=== PATIENT | male | born 1950 | race Caucasian/White ===

== ENCOUNTER 2019-01-17 23:49 | Emergency (ER) | payer OTHER ==
[2019-01-18] MEDS ORDERED: HYDROCODONE/APAP 7.5/325 MG TAB ONE (00:38)
--- NOTE | 2019-01-18 01:03 | EDPHYS ---
Physician Documentation [facility] Name: Chad Oneill Age: 68 yrs Sex: Male : 1950 Arrival Date: 01/17/2019 Time: 23:54 Bed 20 Private MD: ED Physician Pawel Haro HPI: 01/18 00:52 This 68 yrs old Male presents to ER via EMS with complaints of Knee Pain. snw 00:52 The patient presents with decreased range of motion, pain, spasm, swelling. The snw complaints affect the left knee. Context: The problem was sustained at home, resulted from the patient tripping, on a floor edge, the patient is not able to bear weight, the patient is not able to ambulate. Onset: The symptoms/episode began/occurred suddenly, just prior to arrival. Associated signs and symptoms: The patient has no apparent associated signs or symptoms. Treatment prior to arrival includes: no previous treatment. Severity of symptoms: At their worst the symptoms were moderate, severe. The patient has not experienced similar symptoms in the past. It is unknown whether or not the patient has recently seen a physician. no LOC. Historical: - Allergies: 00:00 No Known Allergies; ed1 - Home Meds: 00:00 None [Active]; ed1 - PMHx: 00:00 Hypertension; ed1 - PSHx: 00:00 Heart stents; Hip replacement; ed1 - Immunization history:: Adult Immunizations unknown. - Social history:: Smoking status: Patient/guardian denies using tobacco. - Ebola Screening: : Patient negative for fever greater than or equal to 101.5 degrees Fahrenheit, and additional compatible Ebola Virus Disease symptoms Patient denies exposure to infectious person Patient denies travel to an Ebola-affected area in the 21 days before illness onset No symptoms or risks identified at this time. ROS: 00:50 Constitutional: Negative for fever, chills, and weight loss, Eyes: Negative for injury, snw pain, redness, and discharge, ENT: Negative for injury, pain, and discharge, Neck: Negative for injury, pain, and swelling, Cardiovascular: Negative for chest pain, palpitations, and edema, Respiratory: Negative for shortness of breath, cough, wheezing, and pleuritic chest pain, Abdomen/GI: Negative for abdominal pain, nausea, vomiting, diarrhea, and constipation, Back: Negative for injury and pain, : Negative for injury, bleeding, discharge, and swelling, Skin: Negative for injury, rash, and discoloration, Neuro: Negative for headache, weakness, numbness, tingling, and seizure, Psych: Negative for depression, anxiety, suicide ideation, homicidal ideation, and hallucinations. 00:50 MS/extremity: Positive for injury or acute deformity, decreased range of motion, pain, swelling, tenderness, of the left knee. Exam: 00:49 Constitutional: This is a well developed, obese patient who is awake, alert, and in no snw acute distress. Head/Face: Normocephalic, atraumatic. Eyes: Pupils equal round and reactive to light, extra-ocular motions intact. Lids and lashes normal. Conjunctiva and sclera are non-icteric and not injected. Cornea within normal limits. Periorbital areas with no swelling, redness, or edema. ENT: Nares patent. No nasal discharge, no septal abnormalities noted. Tympanic membranes are normal and external auditory canals are clear. Oropharynx with no redness, swelling, or masses, exudates, or evidence of obstruction, uvula midline. Mucous membranes moist. Neck: Trachea midline, no thyromegaly or masses palpated, and no cervical lymphadenopathy. Supple, full range of motion without nuchal rigidity, or vertebral point tenderness. No Meningismus. Chest/axilla: Normal chest wall appearance and motion. Nontender with no deformity. No lesions are appreciated. Cardiovascular: Regular rate and rhythm with a normal S1 and S2. No gallops, murmurs, or rubs. Normal PMI, no JVD. No pulse deficits. Respiratory: Lungs have equal breath sounds bilaterally, clear to auscultation and percussion. No rales, rhonchi or wheezes noted. No increased work of breathing, no retractions or nasal flaring. Abdomen/GI: Soft, non-tender, with normal bowel sounds. No distension or tympany. No guarding or rebound. No evidence of tenderness throughout. Back: No spinal tenderness. No costovertebral tenderness. Full range of motion. Skin: Warm, dry with normal turgor. Normal color with no rashes, no lesions, and no evidence of cellulitis. Neuro: Awake and alert, GCS 15, oriented to person, place, time, and situation. Cranial nerves II-XII grossly intact. Motor strength 5/5 in all extremities. Sensory grossly intact. Cerebellar exam normal. Normal gait. Psych: Awake, alert, with orientation to person, place and time. Behavior, mood, and affect are within normal limits. 00:49 Musculoskeletal/extremity: Extremities: grossly normal except: noted in the left knee: decreased ROM, pain, swelling, ROM: limited active range of motion due to pain, limited passive range of motion due to pain, Circulation is intact in all extremities. Sensation intact. Vital Signs: 00:00 BP 155 / 81; Pulse 62; Resp 18; Temp 98.1(TE); Pulse Ox 98% on R/A; Weight 129.27 kg; ed1 Height 5 ft. 8 in. (172.72 cm); Pain 9/10; 01:32 BP 161 / 72; Pulse 67; Resp 17; Pulse Ox 96% on R/A; Pain 6/10; ed1 00:00 Body Mass Index 43.33 (129.27 kg, 172.72 cm) ed1 MDM: 01/17 23:55 Patient medically screened. snw 01/18 01:05 Data reviewed: vital signs, nurses notes. Data interpreted: Pulse oximetry: on room air snw is 98 %. Interpretation: normal. Counseling: I had a detailed discussion with the patient and/or guardian regarding: the historical points, exam findings, and any diagnostic results supporting the discharge/admit diagnosis, radiology results. 01:07 Physician consultation: Brett Padilla MD was called at 00:55, was contacted at 00:59, snw regarding consult, Dr. Padilla recommends knee immobilizer and follow up in office. . 01/18 00:06 Order name: Knee Left 3 View XRAY; Complete Time: 13:17 snw 01/18 00:51 Order name: Knee Immobilizer; Complete Time: 01:32 snw Administered Medications: 00:24 Drug: [place] (7.5 mg-325 mg) 1 tabs Route: PO; ed1 01:32 Follow up: Response: No adverse reaction; Pain is decreased ed1 01:43 Drug: fentaNYL (PF) 75 mcg Route: IM; Site: right deltoid; ed1 01:43 Follow up: Response: Medication administered at discharge. ed1 Disposition: 06:55 Co-signature as Attending Physician, Pawel Haro MD I agree with the assessment and arnol plan of care. Disposition: 01/18/19 01:02 Discharged to Home. Impression: Nondisplaced fracture of lateral condyle of left femur, Fall on same level, unspecified. - Condition is Stable. - Discharge Instructions: Femoral Shaft Fracture, Fall Prevention in the Home, Knee Immobilizer. - Prescriptions for Tylenol- Codeine #3 300-30 mg Oral Tablet - take 2 tablets by ORAL route every 6 hours As needed; 16 tablet. - Medication Reconciliation Form, Thank You Letter, Antibiotic Education, Prescription Opioid Use, SBAR form form. - Follow up: Brett Padilla MD; When: 1 - 2 days; Reason: Recheck today's complaints, Continuance of care, Re-evaluation by your physician. Signatures: Dispatcher [employer] EDMS Pawel Haro MD MD cha Therrien, Shelly, WIRE WEB WORKER-C WIRE WEB WORKER-Csnw Tarik Chun MD MD rn Riggs, Erika, RN RN ed1 Corrections: (The following items were deleted from the chart) 01:07 01:02 01/18/2019 01:02 Discharged to Home. Impression: Nondisplaced fracture of lateral snw condyle of left femur; Fall on same level, unspecified. Condition is Stable. Forms are Medication Reconciliation Form, Thank You Letter, Antibiotic Education, Prescription Opioid Use. Follow up: Brett Padilla; When: 1 - 2 days; Reason: Recheck today's complaints, Continuance of care, Re-evaluation by your physician. [facility] 01:32 00:52 Misc. Order ordered. [facility] ed1
--- NOTE | 2019-01-18 01:03 | ER ---
Nurse's Notes [facility] Name: Chad Oneill Age: 68 yrs Sex: Male : 1950 Arrival Date: 01/17/2019 Time: 23:54 Bed 20 Private MD: Diagnosis: Nondisplaced fracture of lateral condyle of left femur;Fall on same level, unspecified Presentation: 01/17 23:55 Presenting complaint: EMS states: He was walking to bed and caught his foot on ed1 something and fell on his left knee. Transition of care: patient was not received from another setting of care. Onset of symptoms was January 17, 2019. Risk Assessment: Do you want to hurt yourself or someone else? Patient reports no desire to harm self or others. Initial Sepsis Screen: Does the patient meet any 2 criteria? No. Patient's initial sepsis screen is negative. Does the patient have a suspected source of infection? No. Patient's initial sepsis screen is negative. Care prior to arrival: None. 23:55 Method Of Arrival: EMS: [facility] ed1 23:55 Acuity: MARIJA 4 ed1 Triage Assessment: 01/18 00:00 General: Appears uncomfortable, Behavior is calm, cooperative. Pain: Complains of pain ed1 in left knee Pain radiates to left leg Pain currently is 9 out of 10 on a pain scale. Quality of pain is described as throbbing, Pain began 30 min ago. Is continuous. EENT: No signs and/or symptoms were reported regarding the EENT system. Neuro: Level of Consciousness is awake, alert, obeys commands, Oriented to person, place, time, situation, Denies LOC. Cardiovascular: Denies chest pain, Heart tones S1 S2 present Capillary refill < 3 seconds in bilateral fingers. Respiratory: Airway is patent Respiratory effort is even, unlabored, Respiratory pattern is regular, symmetrical, Breath sounds are clear bilaterally. Denies cough, shortness of breath. GI: No signs and/or symptoms were reported involving the gastrointestinal system. : No signs and/or symptoms were reported regarding the genitourinary system. Derm: Wound noted left knee Wound is abrasions. Musculoskeletal: Circulation, motion, and sensation intact. Range of motion: limited in left knee Swelling absent. Historical: - Allergies: 00:00 No Known Allergies; ed1 - Home Meds: 00:00 None [Active]; ed1 - PMHx: 00:00 Hypertension; ed1 - PSHx: 00:00 Heart stents; Hip replacement; ed1 - Immunization history:: Adult Immunizations unknown. - Social history:: Smoking status: Patient/guardian denies using tobacco. - Ebola Screening: : Patient negative for fever greater than or equal to 101.5 degrees Fahrenheit, and additional compatible Ebola Virus Disease symptoms Patient denies exposure to infectious person Patient denies travel to an Ebola-affected area in the 21 days before illness onset No symptoms or risks identified at this time. Screenin:03 Abuse screen: Denies threats or abuse. Denies injuries from another. Nutritional ed1 screening: No deficits noted. Tuberculosis screening: No symptoms or risk factors identified. Fall Risk Fall in past 12 months (25 points). No secondary diagnosis (0 pts). No IV (0 pts). Ambulatory Aid- None/Bed Rest/Nurse Assist (0 pts). Gait- Normal/Bed Rest/Wheelchair (0 pts) Mental Status- Oriented to own ability (0 pts). Total Jones Fall Scale indicates Low Risk Score (25-44 pts). Fall prevention measures have been instituted. Side Rails Up X 2 Placed close to Nursing Station Frequent Obs/Assesments occuring Family Present and informed to notify staff if they need to leave bedside As available Patient and Family Educated on Fall Prevention Program and strategies. Assessment: 00:03 General: See triage assessment. ed1 01:32 Reassessment: Patient appears in no apparent distress at this time. Patient and/or ed1 family updated on plan of care and expected duration. Pain level reassessed. Patient is alert, oriented x 3, equal unlabored respirations, skin warm/dry/pink. Patient states feeling better. Patient states symptoms have improved. Vital Signs: 00:00 BP 155 / 81; Pulse 62; Resp 18; Temp 98.1(TE); Pulse Ox 98% on R/A; Weight 129.27 kg; ed1 Height 5 ft. 8 in. (172.72 cm); Pain 9/10; 01:32 BP 161 / 72; Pulse 67; Resp 17; Pulse Ox 96% on R/A; Pain 6/10; ed1 00:00 Body Mass Index 43.33 (129.27 kg, 172.72 cm) ed1 ED Course: 01/17 23:54 Patient arrived in ED. ed1 23:55 Crissy Valencia FNP-C is [facility]. snw 23:55 Pawel Haro MD is Attending Physician. snw 23:58 Triage completed. ed1 06 00:00 Arm band placed on right wrist. ed1 00:03 Patient has correct armband on for positive identification. Bed in low position. Call ed1 light in reach. Side rails up X2. Pulse ox on. NIBP on. Warm blanket given. 00:04 Nathalia Scales, RN is Primary Nurse. ed1 01:01 Brett Weir MD is Referral Physician. snw 01:04 X-ray completed. Patient tolerated procedure well. kw 01:11 Knee Left 3 View XRAY In Process Unspecified. EDMS 01:32 No provider procedures requiring assistance completed. Patient did not have IV access ed1 during this emergency room visit. Knee immobilizer applied on left knee. Administered Medications: 00:24 Drug: [place] (7.5 mg-325 mg) 1 tabs Route: PO; ed1 01:32 Follow up: Response: No adverse reaction; Pain is decreased ed1 01:43 Drug: fentaNYL (PF) 75 mcg Route: IM; Site: right deltoid; ed1 01:43 Follow up: Response: Medication administered at discharge. ed1 Outcome: 01:02 Discharge ordered by . snw 01:43 Discharged to home via [facility] ed1 01:43 Condition: stable 01:43 Discharge instructions given to patient, family, Instructed on discharge instructions, follow up and referral plans. medication usage, Demonstrated understanding of instructions, follow-up care, medications, Prescriptions given X 1. 01:59 Patient left the ED. ed1 Signatures: Dispatcher [employer] EDMS Crissy Valencia FNP-C CONSTRUCTION EQUIPMENT OPERATOR-Csnw Nathalia Scales, RN RN ed1 Maday Guzman kw
[2019-01-18] MEDS ORDERED: FENTANYL CITR 100 MCG/2 ML ONE (01:54)
--- NOTE | 2019-01-18 09:09 | RAD REPORT ---
EXAM DESCRIPTION: RAD - Knee Left 3 View - 01/18/2019 1:11 am CLINICAL HISTORY: Fall, left knee pain COMPARISON: None. FINDINGS: An oblique fracture is present through the distal femur. Fracture plane extends from the l ateral margin of the metaphysis inferiorly into the midline intercondylar notch. No significant distr action or angulation deformity. Joint effusion or hemarthrosis present.Degenerative spurring is seen along the articular margins of the patella and at the quadriceps attachment site. No soft tissue abno rmality. IMPRESSION: Distal left femur fracture as detailed.
== END 2019-01-18 01:59 | disposition home or self-care (01) ==
LOC: ER 23:49
DX: S72.425A Nondisplaced fracture of lateral condyle of left femur, initial encounter for closed fracture (principal); W01.0XXA Fall on same level from slipping, tripping and stumbling without subsequent striking against object, initial encounter; Y92.009 Unspecified place in unspecified non-institutional (private) residence as the place of occurrence of the external cause; I10 Essential (primary) hypertension
CPT/HCPCS: 73562; J3010; 96372; 99284

== ENCOUNTER 2019-01-18 12:08 | Inpatient (IN) | payer OTHER ==
[2019-01-18] MEDS ORDERED: ONDANSETRON 4 MG/2 ML VIAL IV PRN (12:49)
[2019-01-18] MEDS ORDERED: D50W 25 GM/50 ML SYRINGE IV PRN ×2 (12:49→17:08)
[2019-01-18] MEDS ORDERED: ACETAMINOPHEN 325 MG TABLET PO PRN (12:49)
[2019-01-18] MEDS ORDERED: GLUCAGON 1 MG/VIAL IM PRN ×2 (12:49→17:08)
[2019-01-18] MEDS: HYDROMORPHONE HCL 1 MG/ML INJ IV PRN ×3 (13:09→20:03)
[2019-01-18 13:29] LABS: Absolute Lymphocytes (CBC) 0.9 K/uL (0.7-4.9); Basophils % 0.5 % (0-1.3); Eosinophils % 0.2 % (0-4.4); Hematocrit 45.9 % (39.6-49.0); Lymphocytes % 8.1 % (15.3-44.8); Monocytes % 7.9 % (3.3-12.3); RBC Red Blood Cell Count 5.01 M/uL (4.33-5.43)
--- NOTE | 2019-01-18 13:36 | RAD REPORT ---
EXAM DESCRIPTION: RAD - Chest Single View - 01/18/2019 1:30 pm CLINICAL HISTORY: Preop chest, pending femur fracture repair COMPARISON: February 2014 TECHNIQUE: AP portable chest image was obtained 1325 hours . FINDINGS: Lung volumes are low. No peripheral mass or consolidation. No failure or volume overload. Heart and vasculature are normal. No measurable pleural effusion and no pneumothorax. No acute bony a bnormality seen. No acute aortic findings suspected. IMPRESSION: No acute cardiopulmonary process. No significant interval change.
[2019-01-18 13:43] LABS: Protime INR 0.98
[2019-01-18 14:17] LABS: Potassium 4.7 mmol/L (3.5-5.1)
[2019-01-18] MEDS ORDERED: INSULIN -REGULAR HUMAN 50 UNIT/0.5 ML ML SQ SCH (16:30)
[2019-01-18 16:44] LABS: Urine Appearance CLEAR; Urine Bilirubin NEGATIVE (NEG); Urine Blood NEGATIVE (NEG); Urine Color YELLOW; Urine Glucose 3+ (NEG); Urine Protein NEGATIVE (NEG); Urine Specific Gravity >=1.030 (1.005-1.030); Urine Urobilinogen 0.2 mg/dL (0.2-1.0)
[2019-01-18 16:46] LABS: Urine Microscopic Reflex NO UMIC
[2019-01-18] MEDS: INSULIN -REGULAR HUMAN 50 UNIT/0.5 ML ML SQ SCH ×2 (17:28→20:02)
--- NOTE | 2019-01-18 21:21 | P.HP ---
Certification for Inpatient Patient admitted to: Inpatient With expected LOS: >2 Midnights Practitioner: I am a practitioner with admitting privileges, knowledge of patient current condition, hospital course, and medical plan of care. Services: Services provided to patient in accordance with Admission requirements found in Title 42 Section 412.3 of the Code of Federal Regulations Patient History Date of Service: 01/18/19 Reason for admission: FELL AND BROKE L LEG. History of Present Illness: MR THORNTON IS OBESE DIABETIC WHO FELL AT HOME TOPPLED OVER THE BOX FILLED WITH STUFF IN KITCHEN AND BROKE L LEG. HE HAS NOT BEEN TAKING HIS MEDICATIONS TRYING TO TAKE CARE OF FATHER IN LAW WHO RECENTLY. HE HAS NOT CHECKED HIS GLUCOSE. Allergies No Known Allergies Allergy (Unverified 01/18/19 12:33) Home Medications: Aspirin 81 mg PO DAILY 01/18/19 Atorvastatin Calcium 40 mg PO BEDTIME 01/18/19 Canagliflozin/Metformin HCl [Invokamet 150-1,000 mg Tablet] 1 tab PO BID Glimepiride [Amaryl] 4 mg PO DAILY 01/18/19 Lisinopril [Prinivil] 20 mg PO DAILY 01/18/19 - Past Medical/Surgical History Has patient received pneumonia vaccine in the past: Yes -: Type 2 DM -: Hypertension -: 3 heart Stents -: Left Hip replacement - Social History Smoking Status: Never smoker Alcohol use: No CD- Drugs: No Caffeine use: Yes Place of Residence: Home Review of Systems 10-point ROS is otherwise unremarkable Musculoskeletal: Leg Pain Physical Examination - Vital Signs Temperature: 98 F Blood Pressure: 136/75 Pulse: 87 Respirations: 16 Pulse Ox (%): 95 - Physical Exam General: Alert, Obese HEENT: Atraumatic, PERRLA, Mucous membr. moist/pink, EOMI, Sclerae nonicteric Neck: Supple, 2+ carotid pulse no bruit, No LAD, Without JVD or thyroid abnormality Respiratory: Clear to auscultation bilaterally, Normal air movement Cardiovascular: Regular rate/rhythm, Normal S1 S2 Gastrointestinal: Normal bowel sounds, No tenderness Musculoskeletal: No tenderness Integumentary: No rashes Neurological: Normal gait, Normal speech, Normal strength at 5/5 x4 extr, Normal tone, Normal affect Lymphatics: No axilla or inguinal lymphadenopathy - Studies Laboratory Data (last 24 hrs) 01/18/19 : PT Cancelled, INR Cancelled 01/18/19 16:54: Glucose 511 H* 01/18/19 13:48: Sodium 133 L, Potassium 4.7, BUN 18, Creatinine 1.10, Glucose 384 H 01/18/19 13:06: PT 11.6, INR 0.98 01/18/19 13:06: Sodium Cancelled, Potassium Cancelled, BUN Cancelled, Creatinine Cancelled, Glucose Cancelled 01/18/19 13:06: WBC 11.6 H, Hgb 15.2, Hct 45.9, Plt Count 259 Assessment and Plan - Problems (Diagnosis) (1) Diabetes Current Visit: Yes Status: Acute Plan: RESTART MEDS FU EVERY 3 MTHS. HE IS NOT WATCHING DIET. HE KNOWS ABOUT COMPLICATIONS OF DM. Qualifiers: Diabetes mellitus type: type 2 Diabetes mellitus complication status: without complication (2) Femur fracture, left Current Visit: Yes Status: Acute Plan: SURGERY BY DR WALLACE IN AM THIS IS URGENT SURGERY. MEDICALLY CLEARED WITH MILD TO MODERATE RISK OF RECOVERY. OBESITY AND DM ARE RISK FACTORS. Qualifiers: Encounter type: initial encounter Femur location: distal, unspecified portion Fracture type: closed - Advance Directives Does patient have a Living Will: No Does patient have a Durable POA for Healthcare: No
[2019-01-19] MEDS: HYDROMORPHONE HCL 1 MG/ML INJ IV PRN ×5 (00:30→22:29)
--- NOTE | 2019-01-19 07:55 | EKG ---
Test Date: 2019-01-18 Test Time: 12:48:24 Infection Control Practitioner: MADINA MEASUREMENT RESULTS: Intervals: Rate: 63 ND: 174 QRSD: 76 QT: 402 QTc: 411 Stover: P: 7 ND: 174 QRS: 21 T: 41 INTERPRETIVE STATEMENTS: Normal sinus rhythm with sinus arrhythmia Low voltage QRS Borderline ECG Compared to ECG 07/26/2009 05:58:53 No significant changes Electronically Signed On 01-19-19 07:54:15 CDT by Dewayne Haskins
[2019-01-19] MEDS: INSULIN -REGULAR HUMAN 50 UNIT/0.5 ML ML SQ SCH ×4 (08:15→21:54)
[2019-01-19] MEDS: CANAGLIFLOZIN PO SCH ×2 (08:18→21:00)
[2019-01-19] MEDS: GLIMEPIRIDE 2 MG TABLET PO SCH ×2 (08:18→21:54)
[2019-01-19] MEDS: ASPIRIN 81 MG CHEWABLE TABLET PO SCH (08:18)
[2019-01-19] MEDS: LISINOPRIL 20 MG TAB PO SCH (08:18)
[2019-01-19] MEDS: METFORMIN HCL PO SCH ×2 (08:18→21:00)
[2019-01-19 11:40] LABS: UR MICROALBUMIN 4.6 mg/dL (< 1.9)
--- NOTE | 2019-01-19 12:36 | P.PN ---
Subjective Date of Service: 01/19/19 Chief Complaint: FELL AND BROKE L LEG. Subjective: No C/O voiced PAIN NEAR KNEE. SP FALL. Review of Systems 10-point ROS is otherwise unremarkable General: Weakness, Malaise Physical Examination - Vital Signs Temperature: 98.5 F Blood Pressure: 138/77 Pulse: 85 Respirations: 17 Pulse Ox (%): 92 - Physical Exam General: Alert, Mild distress, Moderate distress HEENT: Atraumatic, PERRLA, EOMI Neck: Supple, JVD not distended Respiratory: Clear to auscultation bilaterally, Normal air movement Cardiovascular: Regular rate/rhythm, Normal S1 S2 Gastrointestinal: Normal bowel sounds, No tenderness Musculoskeletal: No tenderness Integumentary: No rashes Neurological: Normal speech, Normal tone, Normal affect Lymphatics: No axilla or inguinal lymphadenopathy - Studies Laboratory Data (last 24 hrs) 01/19/19 07:17: LDL Cholesterol Direct 174 H 01/18/19 : PT Cancelled, INR Cancelled 01/18/19 16:54: Glucose 511 H* 01/18/19 13:48: Sodium 133 L, Potassium 4.7, BUN 18, Creatinine 1.10, Glucose 384 H 01/18/19 13:06: PT 11.6, INR 0.98 01/18/19 13:06: Sodium Cancelled, Potassium Cancelled, BUN Cancelled, Creatinine Cancelled, Glucose Cancelled 01/18/19 13:06: WBC 11.6 H, Hgb 15.2, Hct 45.9, Plt Count 259 Medications List Reviewed: Yes Assessment And Plan - Current Problems (Diagnosis) (1) Diabetes Current Visit: Yes Status: Acute Plan: RESTART MEDS FU EVERY 3 MTHS. HE IS NOT WATCHING DIET. HE KNOWS ABOUT COMPLICATIONS OF DM. HE HAS NOT TAKEN MEDS FOR LONG TIME. Qualifiers: Diabetes mellitus type: type 2 Diabetes mellitus complication status: without complication (2) Femur fracture, left Current Visit: Yes Status: Acute Plan: SURGERY BY DR WALLACE IN AM THIS IS URGENT SURGERY. MEDICALLY CLEARED WITH MILD TO MODERATE RISK OF RECOVERY. OBESITY AND DM ARE RISK FACTORS. Qualifiers: Encounter type: initial encounter Femur location: distal, unspecified portion Fracture type: closed
[2019-01-19] MEDS ORDERED: NA CHLORIDE 0.9% 1,000 ML ONE ×3 (13:46→18:09)
[2019-01-19] MEDS ORDERED: PROPOFOL 200 MG/20 ML VIAL IV ONE (14:25)
[2019-01-19] MEDS ORDERED: FENTANYL CITR 100 MCG/2 ML ONE ×2 (14:25→15:35)
[2019-01-19] MEDS ORDERED: LIDOCAINE 2% MPF 5 ML VIAL ONE (14:26)
[2019-01-19] MEDS ORDERED: MIDAZOLAM HCL 2 MG/2 ML INJ ONE ×2 (14:26→17:32)
[2019-01-19] MEDS ORDERED: ONDANSETRON 4 MG/2 ML VIAL ONE (14:28)
[2019-01-19] MEDS ORDERED: CEFAZOLIN/SWI 2gm 2 GM/20 ML SYR IVP SCH (14:30)
[2019-01-19] MEDS ORDERED: CEFAZOLIN/SWI 1gm 0 GM/0 ML SYR ONE (14:30)
[2019-01-19] MEDS ORDERED: Phenylephrine HCl 10 MG/ML 1 ML VIAL ONE (14:55)
[2019-01-19] MEDS ORDERED: TRANEXAMIC ACID 1,000 MG/10 ML VIAL IV SCH (15:00)
--- NOTE | 2019-01-19 16:59 | P.BOP ---
Preoperative diagnosis: left distal femur lat condyle fx Postoperative diagnosis: same Primary procedure: left distal femur ORIF Estimated blood loss: 50ccs Anesthesia: General Complications: None Transferred to: Recovery Room Condition: Good
[2019-01-19] MEDS ORDERED: ROPLVACAINE HCL 40 ML ONE (17:15)
[2019-01-19] MEDS ORDERED: dexAMETHasone 4 MG/ML VIAL ONE (17:15)
--- NOTE | 2019-01-19 18:05 | RAD REPORT ---
EXAM DESCRIPTION: RAD - Knee Left 2 View - 01/19/2019 5:42 pm CLINICAL HISTORY: Left femoral fracture FINDINGS: Twenty-one fluoroscopic spot images obtained. Fluoroscopy time 1.5 minutes surgery perform ed by Dr. Cason Edjose Plate and screws affix a distal femoral fracture
[2019-01-19] MEDS ORDERED: INSULIN -REGULAR HUMAN 50 UNIT/0.5 ML ML ONE (18:07)
[2019-01-19] MEDS: ATORVASTATIN 40 MG TAB PO SCH (21:54)
[2019-01-19] MEDS ORDERED: CEFAZOLIN SODIUM 1 GM/VIAL ONE (23:18)
[2019-01-19] MEDS ORDERED: NA CHLORIDE 0.9% 50 ML ONE (23:33)
[2019-01-19] MEDS: CEFAZOLIN/NS 1gm 1 GM/50 ML BAG IVPB SCH (23:34)
[2019-01-20] MEDS: HYDROMORPHONE HCL 1 MG/ML INJ IV PRN ×6 (02:39→20:30)
[2019-01-20 04:50] LABS: Absolute Lymphocytes (CBC) 0.6 K/uL (0.7-4.9); Basophils % 0.1 % (0-1.3); Hematocrit 40.8 % (39.6-49.0); Lymphocytes % 5.6 % (15.3-44.8); MPV 9.7 fL (7.6-11.3); Monocytes % 8.3 % (3.3-12.3); RBC Red Blood Cell Count 4.44 M/uL (4.33-5.43)
--- NOTE | 2019-01-20 04:52 | OP ---
Date of Procedure: 01/19/2019 Surgeon: Olayinka Cason MD Preoperative Diagnosis: Left distal femur lateral condyle fracture, which is intercondylar. Postoperative Diagnosis: Left distal femur lateral condyle fracture, which is intercondylar. Procedure: Left femur open reduction and internal fixation using a Biomet locking periarticular plat e. Estimated Blood Loss: 50 cc. Complications: There were no complications. Specimens: No pathology specimen sent. Indications For Operation: Mr. Oneill is a 68-year-old male who I have seen in the past. I have do ne a total hip arthroplasty and he is doing well. Unfortunately, he fell injuring his left lower ext remity. He was seen and examined in the emergency department where x-ray was taken, which demonstrat ed a slightly displaced lateral condyle fracture of the femur. He was placed in knee immobilizer and sent home. He came to my office in significant pain. Unfortunately, he was unable to transfer to [facility] back to the hospital. Therefore, an ambulance came and brought him back to the hospital. He was directly admitted under the care of his primary care physician. All risks, benefits, and alternative s to operative intervention regarding his left knee had been discussed with both he and his family, i ncluding different methods of treating this. They state they understand things as presented and wish to proceed. Description Of Procedure: The patient was taken to the operating room and placed in supine position. General anesthesia was obtained by the staff. Following this, the left lower extremity was then pr epped and draped in the usual sterile fashion. We did have a sterile tourniquet available if we wish to use; however, we did not use it throughout the case. Following this, a standard anterior incisio n was taken down carefully through skin and soft tissues, very reminiscent of a total knee arthroplas ty incision which extended somewhat superiorly. Following this, the lateral border of the patellar t endon was marked out as well as the lateral border of the patella. A lateral parapatellar arthrotomy was then performed with a gush of significant amount of hemarthrosis, which was cleared as approache d the more lateral aspect of the patella. Remainder of the vessels are cauterized and the fascia ove rlying the quadriceps is divided. Care was taken not to proceed posteriorly as some of the quadricep s is elevated off the lateral portions of the anterior femur. The fracture itself then is excellentl y visualized and is found to be quite displaced, rotated approximately 30 degrees into extension. Th e fracture site itself is cleared and, manual pressure using a thumb as well as use of a Martinez clamp, we were able to reduce this essentially anatomically. After this, the decision was made to select t he plate. The right plate actually appeared to fit quite well. Therefore, it was applied to the fem ur with two K-wires holding reduction and observed under biplanar C-arm radiography and appeared to f it quite well. The two distal screws are then placed without difficulty as well as one proximal scre w across the fracture site. It was again checked on biplanar C-arm radiography and the remainder of the screws are then placed. The initial screw proximally is slightly angled; however, this is prefer able to avoid multiple inline screw holes. The locking caps were then applied to 3 of the 4 distal s crews. The most distal screw does not have a locking cap. Following this, the wound was copiously i rrigated and the fascial incision as well as the lateral parapatellar arthrotomy were closed using Et hibond sutures. This was followed by closure of skin using Vicryl sutures, followed by closure of th e skin using donny. The patient was then placed in Aquacel dressing, awakened, and taken to recove ry room in good condition. GAYLA Voice ID: [id number] Report ID: [id number]
[2019-01-20 05:08] LABS: Magnesium 2.3 mg/dL (1.8-2.4); Potassium 4.9 mmol/L (3.5-5.1)
[2019-01-20] MEDS ORDERED: NA CHLORIDE 0.9% 50 ML ONE (05:25)
[2019-01-20 05:26] LABS: Blood Morphology Comment NOT SEEN (NOT SEEN); Platelet Estimate ADEQ; Urine White Blood Cell Casts OK
[2019-01-20] MEDS: CEFAZOLIN/NS 1gm 1 GM/50 ML BAG IVPB SCH (06:34)
[2019-01-20] MEDS: CANAGLIFLOZIN PO SCH ×2 (07:57→20:31)
[2019-01-20] MEDS: METFORMIN HCL PO SCH ×2 (07:57→20:31)
[2019-01-20] MEDS: INSULIN -REGULAR HUMAN 50 UNIT/0.5 ML ML SQ SCH ×4 (07:58→20:29)
[2019-01-20] MEDS: LISINOPRIL 20 MG TAB PO SCH (07:59)
[2019-01-20] MEDS: GLIMEPIRIDE 2 MG TABLET PO SCH ×2 (07:59→20:30)
[2019-01-20] MEDS: ASPIRIN 81 MG CHEWABLE TABLET PO SCH (07:59)
[2019-01-20] MEDS: ENOXAPARIN 30 MG/0.3 ML SQ SCH ×2 (10:50→20:30)
[2019-01-20] MEDS ORDERED: CEFAZOLIN/SWI 1gm 1 GM/10 ML SYR IV ONE (15:00)
[2019-01-20] MEDS: ATORVASTATIN 40 MG TAB PO SCH (20:30)
[2019-01-20] MEDS ORDERED: D50W 25 GM/50 ML SYRINGE IV PRN (22:05)
[2019-01-20] MEDS ORDERED: GLUCAGON 1 MG/VIAL IM PRN (22:05)
--- NOTE | 2019-01-20 22:05 | P.PN ---
Subjective Date of Service: 01/20/19 Chief Complaint: FELL AND BROKE L LEG. Subjective: Improving PAIN NEAR KNEE. SP FALL. SP SURGERY. Review of Systems 10-point ROS is otherwise unremarkable Physical Examination - Vital Signs Temperature: 98.8 F Blood Pressure: 117/63 Pulse: 87 Respirations: 16 Pulse Ox (%): 95 - Physical Exam General: Alert, Obese HEENT: Atraumatic, PERRLA, EOMI Neck: Supple, JVD not distended Respiratory: Clear to auscultation bilaterally, Normal air movement Cardiovascular: Regular rate/rhythm, Normal S1 S2 Gastrointestinal: Normal bowel sounds, No tenderness Musculoskeletal: Other (L KNEE SP SURGERY, REPAIR FOR FRACTURE LOWER FEMUR) Integumentary: No rashes Neurological: Normal speech, Normal tone, Normal affect Lymphatics: No axilla or inguinal lymphadenopathy - Studies Laboratory Data (last 24 hrs) 01/20/19 04:13: Sodium 138, Potassium 4.9, BUN 19 H, Creatinine 1.14, Glucose 260 H, Magnesium 2.3 01/20/19 04:13: WBC 11.3 H, Hgb 13.6, Hct 40.8, Plt Count 263 Medications List Reviewed: Yes Assessment And Plan - Current Problems (Diagnosis) (1) Diabetes Current Visit: Yes Status: Acute Plan: RESTART MEDS FU EVERY 3 MTHS. HE IS NOT WATCHING DIET. HE KNOWS ABOUT COMPLICATIONS OF DM. HE HAS NOT TAKEN MEDS FOR LONG TIME. START LANTUS 15 UNITS DAILY TABLETS MAY NOT WORK FOR HIM. Qualifiers: Diabetes mellitus type: type 2 Diabetes mellitus complication status: without complication (2) Femur fracture, left Current Visit: Yes Status: Acute Plan: SURGERY BY DR WALLACE IN AM THIS IS URGENT SURGERY. MEDICALLY CLEARED WITH MILD TO MODERATE RISK OF RECOVERY. OBESITY AND DM ARE RISK FACTORS. Qualifiers: Encounter type: initial encounter Femur location: distal, unspecified portion Fracture type: closed
[2019-01-20] MEDS ORDERED: INSULIN GLARGINE 100 UNITS/ML SQ SCH (23:00)
[2019-01-21] MEDS: INSULIN GLARGINE 100 UNITS/ML SQ SCH ×2 (00:18→21:19)
[2019-01-21] MEDS: HYDROMORPHONE HCL 1 MG/ML INJ IV PRN ×5 (00:19→21:18)
[2019-01-21 06:34] LABS: Absolute Lymphocytes (CBC) 1.1 K/uL (0.7-4.9); Basophils % 0.4 % (0-1.3); Eosinophils % 0.4 % (0-4.4); Hematocrit 37.7 % (39.6-49.0); Lymphocytes % 10.8 % (15.3-44.8); RBC Red Blood Cell Count 4.11 M/uL (4.33-5.43)
[2019-01-21 06:50] LABS: Potassium 4.4 mmol/L (3.5-5.1)
--- NOTE | 2019-01-21 07:08 | PN ---
Date of Progress Note: 01/20/2019 Subjective: The patient is seen today. He says he has complaints of pain related to his left knee. This is apparently episodic, but is tolerating his CPM fairly well. His dressing is clean, dry, and intact. There is no obvious effusion or hemarthrosis. He is neurovascularly intact. He has been a febrile. Hemoglobin is 13.6. Assessment: He is doing fairly well postop day #1 after locked plating of lateral femoral condyle fr acture. I think at this time we can start him on Lovenox as well as discontinue the CPM if it is bot hersome for him. Otherwise, physical therapy will see him today. I think discharge planning is in p lulu. This is probably more of a social issue than a medical issue at this point because of his p robable limited mobility, but we will see how he does in physical therapy. Otherwise, pain relief pe r Dr. Kilgore, and if he is discharged, we will place him on full strength aspirin every day. I think he would have Lovenox though while an inpatient. /MODL Voice ID: [id number] Report ID: [id number]
[2019-01-21] MEDS: INSULIN -REGULAR HUMAN 50 UNIT/0.5 ML ML SQ SCH ×4 (08:06→21:18)
[2019-01-21] MEDS: ASPIRIN 81 MG CHEWABLE TABLET PO SCH (08:07)
[2019-01-21] MEDS: LISINOPRIL 20 MG TAB PO SCH (08:07)
[2019-01-21] MEDS: ENOXAPARIN 30 MG/0.3 ML SQ SCH ×2 (08:07→21:19)
[2019-01-21] MEDS: GLIMEPIRIDE 2 MG TABLET PO SCH ×2 (08:07→21:19)
[2019-01-21] MEDS: METFORMIN HCL PO SCH ×2 (08:08→16:22)
[2019-01-21] MEDS: CANAGLIFLOZIN PO SCH ×2 (08:08→16:22)
--- NOTE | 2019-01-21 14:07 | P.PN ---
Subjective Date of Service: 01/21/19 Chief Complaint: NOT ABLE TO WALK . Subjective: Improving PAIN NEAR KNEE. SP FALL. SP SURGERY. POST OP. DOING WELL. NOT ABLE TO WALK. DIABETES IS NOT WELL CONTROLLED. Review of Systems 10-point ROS is otherwise unremarkable General: Weakness, Malaise Physical Examination - Vital Signs Temperature: 97.2 F Blood Pressure: 101/64 Pulse: 85 Respirations: 17 Pulse Ox (%): 95 - Physical Exam General: Alert, Oriented x3, Obese HEENT: Atraumatic, PERRLA, EOMI Neck: Supple, JVD not distended Respiratory: Clear to auscultation bilaterally, Normal air movement Cardiovascular: Regular rate/rhythm, Normal S1 S2 Gastrointestinal: Normal bowel sounds, No tenderness Musculoskeletal: No tenderness Integumentary: No rashes Neurological: Normal speech, Normal tone, Normal affect Lymphatics: No axilla or inguinal lymphadenopathy - Studies Laboratory Data (last 24 hrs) 01/21/19 05:54: Sodium 135 L, Potassium 4.4, BUN 24 H, Creatinine 1.10, Glucose 250 H 01/21/19 05:54: WBC 10.1, Hgb 12.5 L, Hct 37.7 L, Plt Count 241 Medications List Reviewed: Yes Assessment And Plan - Current Problems (Diagnosis) (1) Diabetes Current Visit: Yes Status: Acute Plan: RESTART MEDS FU EVERY 3 MTHS. HE IS NOT WATCHING DIET. HE KNOWS ABOUT COMPLICATIONS OF DM. HE HAS NOT TAKEN MEDS FOR LONG TIME. START LANTUS 15 UNITS DAILY TABLETS MAY NOT WORK FOR HIM. Qualifiers: Diabetes mellitus type: type 2 Diabetes mellitus complication status: without complication (2) Femur fracture, left Current Visit: Yes Status: Acute Plan: SURGERY BY DR WALLACE IN AM THIS IS URGENT SURGERY. MEDICALLY CLEARED WITH MILD TO MODERATE RISK OF RECOVERY. OBESITY AND DM ARE RISK FACTORS. STABLE. DC PLAN CALLED . SHE CAN'T TAKE CARE OF HIM. NH OR REHAB. I AM NOW WAITING FOR VULCANIZED FIBER UNIT OPERATOR. I AM READY TO DISCHARGE HIM. Qualifiers: Encounter type: initial encounter Femur location: distal, unspecified portion Fracture type: closed
[2019-01-21] MEDS ORDERED: INSULIN GLARGINE 100 UNITS/ML SQ SCH (21:00)
[2019-01-21] MEDS: ATORVASTATIN 40 MG TAB PO SCH (21:19)
[2019-01-22] MEDS: HYDROMORPHONE HCL 1 MG/ML INJ IV PRN ×4 (02:09→19:58)
[2019-01-22 06:11] LABS: Absolute Lymphocytes (CBC) 1.4 K/uL (0.7-4.9); Basophils % 0.6 % (0-1.3); Eosinophils % 1.8 % (0-4.4); Hematocrit 36.3 % (39.6-49.0); Lymphocytes % 18.8 % (15.3-44.8); MPV 9.3 fL (7.6-11.3); Monocytes % 11.6 % (3.3-12.3); RBC Red Blood Cell Count 3.96 M/uL (4.33-5.43)
[2019-01-22 06:40] LABS: Potassium 4.2 mmol/L (3.5-5.1)
[2019-01-22] MEDS: INSULIN -REGULAR HUMAN 50 UNIT/0.5 ML ML SQ SCH ×4 (08:39→21:38)
[2019-01-22] MEDS: CANAGLIFLOZIN PO SCH ×2 (08:40→17:04)
[2019-01-22] MEDS: ENOXAPARIN 30 MG/0.3 ML SQ SCH ×2 (08:40→21:40)
[2019-01-22] MEDS: METFORMIN HCL PO SCH ×2 (08:40→17:04)
[2019-01-22] MEDS: GLIMEPIRIDE 2 MG TABLET PO SCH (08:41)
[2019-01-22] MEDS: ASPIRIN 81 MG CHEWABLE TABLET PO SCH (08:41)
[2019-01-22] MEDS: LISINOPRIL 20 MG TAB PO SCH (08:41)
--- NOTE | 2019-01-22 10:21 | P.PN ---
Subjective Date of Service: 01/22/19 Chief Complaint: NOT ABLE TO WALK . Subjective: Improving PAIN NEAR KNEE. SP FALL. SP SURGERY. POST OP. DOING WELL. NOT ABLE TO WALK. DIABETES IS NOT WELL CONTROLLED. HAS NO COMPLAINTS. WE ARE WAITING FOR PLACMENT FROM SOCIAL WORKERS. Review of Systems 10-point ROS is otherwise unremarkable Physical Examination - Vital Signs Temperature: 97.7 F Blood Pressure: 119/74 Pulse: 77 Respirations: 18 Pulse Ox (%): 95 - Physical Exam General: Alert, In no apparent distress, Obese HEENT: Atraumatic, PERRLA, EOMI Neck: Supple, JVD not distended Respiratory: Clear to auscultation bilaterally, Normal air movement Cardiovascular: Regular rate/rhythm, Normal S1 S2 Gastrointestinal: Normal bowel sounds, No tenderness Musculoskeletal: Other (L FEMUR FRCATURE. SP.) Integumentary: No rashes Neurological: Normal speech, Normal tone, Normal affect Lymphatics: No axilla or inguinal lymphadenopathy - Studies Laboratory Data (last 24 hrs) 01/22/19 05:44: Sodium 138, Potassium 4.2, BUN 20 H, Creatinine 1.02, Glucose 139 H 01/22/19 05:44: WBC 7.6 D, Hgb 12.1 L, Hct 36.3 L, Plt Count 238 Medications List Reviewed: Yes Assessment And Plan - Current Problems (Diagnosis) (1) Diabetes Current Visit: Yes Status: Acute Plan: RESTART MEDS FU EVERY 3 MTHS. HE IS NOT WATCHING DIET. HE KNOWS ABOUT COMPLICATIONS OF DM. HE HAS NOT TAKEN MEDS FOR LONG TIME. START LANTUS 15 UNITS DAILY TABLETS MAY NOT WORK FOR HIM. Qualifiers: Diabetes mellitus type: type 2 Diabetes mellitus complication status: without complication (2) Femur fracture, left Current Visit: Yes Status: Acute Plan: SURGERY BY DR WALLACE IN AM THIS IS URGENT SURGERY. MEDICALLY CLEARED WITH MILD TO MODERATE RISK OF RECOVERY. OBESITY AND DM ARE RISK FACTORS. STABLE. DC PLAN CALLED . SHE CAN'T TAKE CARE OF HIM. NH OR REHAB. 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 I AM READY TO DISCHARGE HIM. PLAN PER [employer] NOW. I AM READY TO DC HIM BUT FAMILY CAN'T TAKE CARE OF HIM. HE IS MORBIDLY OBESE WITH FRACTURE. Qualifiers: Encounter type: initial encounter Femur location: distal, unspecified portion Fracture type: closed
[2019-01-22] MEDS ORDERED: MAGNESIUM HYDROXIDE 8% 30 ML PO PRN (16:08)
[2019-01-22] MEDS ORDERED: MAGNESIUM HYDROXIDE 8% 30 ML PO ONE (16:08)
[2019-01-22] MEDS: INSULIN GLARGINE 100 UNITS/ML SQ SCH (21:39)
[2019-01-22] MEDS: ATORVASTATIN 40 MG TAB PO SCH (21:40)
[2019-01-23] MEDS: HYDROMORPHONE HCL 1 MG/ML INJ IV PRN ×7 (02:38→22:51)
[2019-01-23 05:51] LABS: Absolute Lymphocytes (CBC) 1.4 K/uL (0.7-4.9); Basophils % 0.7 % (0-1.3); Eosinophils % 2.1 % (0-4.4); Hematocrit 36.6 % (39.6-49.0); Lymphocytes % 18.9 % (15.3-44.8); MPV 9.6 fL (7.6-11.3); Monocytes % 11.3 % (3.3-12.3); RBC Red Blood Cell Count 4.05 M/uL (4.33-5.43)
[2019-01-23] MEDS: INSULIN -REGULAR HUMAN 50 UNIT/0.5 ML ML SQ SCH ×4 (07:30→21:00)
[2019-01-23] MEDS: ASPIRIN 81 MG CHEWABLE TABLET PO SCH (08:28)
[2019-01-23] MEDS: LISINOPRIL 20 MG TAB PO SCH (08:28)
[2019-01-23] MEDS: CANAGLIFLOZIN PO SCH ×2 (08:28→16:34)
[2019-01-23] MEDS: METFORMIN HCL PO SCH ×2 (08:28→16:34)
[2019-01-23] MEDS: ENOXAPARIN 30 MG/0.3 ML SQ SCH ×2 (08:29→22:55)
--- NOTE | 2019-01-23 13:45 | P.PN ---
Subjective Date of Service: 01/23/19 Chief Complaint: HE IS DOING WELL. Subjective: Improving PAIN NEAR KNEE. SP FALL. SP SURGERY. POST OP. DOING WELL. NOT ABLE TO WALK. DIABETES IS NOT WELL CONTROLLED. HAS NO COMPLAINTS. WE ARE WAITING FOR PLACMENT FROM SOCIAL WORKERS. DOING LOT BETTER. Review of Systems 10-point ROS is otherwise unremarkable General: Weakness, Malaise Physical Examination - Vital Signs Temperature: 97.0 F Blood Pressure: 111/60 Pulse: 81 Respirations: 18 Pulse Ox (%): 94 - Physical Exam General: Alert, Mild distress, Obese HEENT: Atraumatic, PERRLA, EOMI Neck: Supple, JVD not distended Respiratory: Clear to auscultation bilaterally, Normal air movement Cardiovascular: Regular rate/rhythm, Normal S1 S2 Gastrointestinal: Normal bowel sounds, No tenderness Musculoskeletal: No tenderness Integumentary: No rashes Neurological: Normal speech, Normal tone, Normal affect Lymphatics: No axilla or inguinal lymphadenopathy - Studies Laboratory Data (last 24 hrs) 01/23/19 05:17: Sodium 137, Potassium 4.0, BUN 21 H, Creatinine 0.89, Glucose 127 H 01/23/19 05:17: WBC 7.3, Hgb 12.5 L, Hct 36.6 L, Plt Count 293 D Medications List Reviewed: Yes Assessment And Plan - Current Problems (Diagnosis) (1) Diabetes Current Visit: Yes Status: Acute Plan: RESTART MEDS FU EVERY 3 MTHS. HE IS NOT WATCHING DIET. HE KNOWS ABOUT COMPLICATIONS OF DM. HE HAS NOT TAKEN MEDS FOR LONG TIME. START LANTUS 15 UNITS DAILY TABLETS MAY NOT WORK FOR HIM. HE MAY GET OFF LANTUS. Qualifiers: Diabetes mellitus type: type 2 Diabetes mellitus complication status: without complication (2) Femur fracture, left Current Visit: Yes Status: Acute Plan: SURGERY BY DR WALLACE IN AM THIS IS URGENT SURGERY. MEDICALLY CLEARED WITH MILD TO MODERATE RISK OF RECOVERY. OBESITY AND DM ARE RISK FACTORS. STABLE. DC PLAN CALLED . SHE CAN'T TAKE CARE OF HIM. NH OR REHAB. I AM NOW WAITING FOR DRUG PURCHASER. I AM READY TO DISCHARGE HIM. PLAN PER [employer] NOW. I AM READY TO DC HIM BUT FAMILY CAN'T TAKE CARE OF HIM. HE IS MORBIDLY OBESE WITH FRACTURE. HE WANTS TO GO HOME IF HE CAN GET HOSPITAL BED BUT HE HAS TO CHECK WITH . Qualifiers: Encounter type: initial encounter Femur location: distal, unspecified portion Fracture type: closed
[2019-01-23] MEDS: ATORVASTATIN 40 MG TAB PO SCH (22:51)
[2019-01-23] MEDS: INSULIN GLARGINE 100 UNITS/ML SQ SCH (22:53)
[2019-01-24] MEDS: HYDROMORPHONE HCL 1 MG/ML INJ IV PRN ×3 (02:11→10:37)
[2019-01-24 06:10] LABS: Absolute Lymphocytes (CBC) 1.7 K/uL (0.7-4.9); Basophils % 0.8 % (0-1.3); Eosinophils % 3.2 % (0-4.4); Hematocrit 37.9 % (39.6-49.0); Lymphocytes % 24.9 % (15.3-44.8); MPV 9.1 fL (7.6-11.3); Monocytes % 11.8 % (3.3-12.3); RBC Red Blood Cell Count 4.13 M/uL (4.33-5.43)
[2019-01-24 06:16] LABS: Potassium 4.1 mmol/L (3.5-5.1)
[2019-01-24] MEDS: CANAGLIFLOZIN PO SCH ×2 (08:07→16:46)
[2019-01-24] MEDS: METFORMIN HCL PO SCH ×2 (08:07→16:46)
[2019-01-24] MEDS: ASPIRIN 81 MG CHEWABLE TABLET PO SCH (08:07)
[2019-01-24] MEDS: ENOXAPARIN 30 MG/0.3 ML SQ SCH ×2 (08:08→20:26)
[2019-01-24] MEDS: LISINOPRIL 20 MG TAB PO SCH (08:09)
[2019-01-24] MEDS: INSULIN -REGULAR HUMAN 50 UNIT/0.5 ML ML SQ SCH ×4 (08:15→20:27)
[2019-01-24] MEDS: TRAMADOL HCL 50 MG TAB PO PRN (17:14)
[2019-01-24] MEDS: ATORVASTATIN 40 MG TAB PO SCH (20:27)
[2019-01-24] MEDS: INSULIN GLARGINE 100 UNITS/ML SQ SCH (20:28)
--- NOTE | 2019-01-24 21:14 | P.PN ---
Subjective Date of Service: 01/24/19 Chief Complaint: HE IS DOING WELL. Subjective: Improving PAIN NEAR KNEE. SP FALL. SP SURGERY. POST OP. DOING WELL. NOT ABLE TO WALK. DIABETES IS NOT WELL CONTROLLED. HAS NO COMPLAINTS. WE ARE WAITING FOR PLACMENT FROM SOCIAL WORKERS. DOING LOT BETTER. Review of Systems 10-point ROS is otherwise unremarkable Physical Examination - Vital Signs Temperature: 97.5 F Blood Pressure: 124/60 Pulse: 79 Respirations: 18 Pulse Ox (%): 95 - Physical Exam General: Alert, In no apparent distress, Obese HEENT: Atraumatic, PERRLA, EOMI Neck: Supple, JVD not distended Respiratory: Clear to auscultation bilaterally, Normal air movement Cardiovascular: Regular rate/rhythm, Normal S1 S2 Gastrointestinal: Normal bowel sounds, No tenderness Musculoskeletal: No tenderness Integumentary: No rashes Neurological: Normal speech, Normal tone, Normal affect Lymphatics: No axilla or inguinal lymphadenopathy - Studies Laboratory Data (last 24 hrs) 01/24/19 05:31: Sodium 137, Potassium 4.1, BUN 19 H, Creatinine 0.92, Glucose 124 H 01/24/19 05:31: WBC 6.9, Hgb 12.6 L, Hct 37.9 L, Plt Count 313 Medications List Reviewed: Yes Assessment And Plan - Current Problems (Diagnosis) (1) Diabetes Current Visit: Yes Status: Acute Plan: RESTART MEDS FU EVERY 3 MTHS. HE IS NOT WATCHING DIET. HE KNOWS ABOUT COMPLICATIONS OF DM. HE HAS NOT TAKEN MEDS FOR LONG TIME. START LANTUS 15 UNITS DAILY TABLETS MAY NOT WORK FOR HIM. HE MAY GET OFF LANTUS. HE WANTS TO TRY TABLETS SO I WILL RESTART GLIMEPRIDE AND TAPER OR STOP LANTUS IF GLUCOSE GETS BETTER BUT I DOUBT IT IN ABSENCE OF WEIGHT LOSS AND DIET CONTROL. Qualifiers: Diabetes mellitus type: type 2 Diabetes mellitus complication status: without complication (2) Femur fracture, left Current Visit: Yes Status: Acute Plan: SURGERY BY DR WALLACE IN AM THIS IS URGENT SURGERY. MEDICALLY CLEARED WITH MILD TO MODERATE RISK OF RECOVERY. OBESITY AND DM ARE RISK FACTORS. STABLE. DC PLAN CALLED . SHE CAN'T TAKE CARE OF HIM. NH OR REHAB. I AM NOW WAITING FOR FARMER GENERAL. I AM READY TO DISCHARGE HIM. PLAN PER [employer] NOW. I AM READY TO DC HIM BUT FAMILY CAN'T TAKE CARE OF HIM. HE IS MORBIDLY OBESE WITH FRACTURE. HE WANTS TO GO HOME IF HE CAN GET HOSPITAL BED BUT HE HAS TO CHECK WITH . Qualifiers: Encounter type: initial encounter Femur location: distal, unspecified portion Fracture type: closed
[2019-01-25] MEDS: TRAMADOL HCL 50 MG TAB PO PRN ×4 (00:06→20:29)
[2019-01-25 05:01] LABS: Absolute Lymphocytes (CBC) 2.2 K/uL (0.7-4.9); Basophils % 0.7 % (0-1.3); Eosinophils % 2.6 % (0-4.4); Hematocrit 37.7 % (39.6-49.0); Lymphocytes % 25.7 % (15.3-44.8); MPV 9.1 fL (7.6-11.3); Monocytes % 10.6 % (3.3-12.3); RBC Red Blood Cell Count 4.11 M/uL (4.33-5.43)
[2019-01-25 05:04] LABS: Potassium 4.5 mmol/L (3.5-5.1)
[2019-01-25] MEDS: INSULIN -REGULAR HUMAN 50 UNIT/0.5 ML ML SQ SCH ×4 (07:30→20:30)
[2019-01-25] MEDS: GLIMEPIRIDE 2 MG TABLET PO SCH ×2 (08:42→16:49)
[2019-01-25] MEDS: METFORMIN HCL PO SCH ×2 (08:42→16:40)
[2019-01-25] MEDS: ENOXAPARIN 30 MG/0.3 ML SQ SCH ×2 (08:42→20:30)
[2019-01-25] MEDS: CANAGLIFLOZIN PO SCH ×2 (08:42→16:40)
[2019-01-25] MEDS: ASPIRIN 81 MG CHEWABLE TABLET PO SCH (08:43)
[2019-01-25] MEDS: LISINOPRIL 20 MG TAB PO SCH (08:43)
[2019-01-25] MEDS: ATORVASTATIN 40 MG TAB PO SCH (20:29)
[2019-01-25] MEDS ORDERED: INSULIN GLARGINE 100 UNITS/ML SQ SCH ×2 (21:00)
--- NOTE | 2019-01-25 21:19 | P.DS ---
Admission Date: 01/18/19 Discharge Date: 01/25/19 Disposition: TRANSFER TO SNF - MEDICAL Reason for Admission: HE IS DOING WELL. - Problems (1) Diabetes Current Visit: Yes Status: Acute Qualifiers: Diabetes mellitus type: type 2 Diabetes mellitus complication status: without complication (2) Femur fracture, left Current Visit: Yes Status: Acute Qualifiers: Encounter type: initial encounter Femur location: distal, unspecified portion Fracture type: closed Brief History of Present Illness: MR THORNTON IS OBESE DIABETIC WHO FELL AT HOME TOPPLED OVER THE BOX FILLED WITH STUFF IN KITCHEN AND BROKE L LEG. HE HAS NOT BEEN TAKING HIS MEDICATIONS TRYING TO TAKE CARE OF FATHER IN LAW WHO RECENTLY. HE HAS NOT CHECKED HIS GLUCOSE. MR. THORNTON HAS BEEN ACCEPTED TO SNF FOR REHAB AFTER KNEE FRACTURE. HE IS STABLE FOR DC. Vital Signs/Physical Exam: Temp Pulse Resp BP Pulse Ox 96.8 F 86 16 124/77 98 01/25/19 16:00 01/25/19 16:00 01/25/19 16:00 01/25/19 16:00 01/25/19 16:00 Laboratory Data at Discharge: WBC 8.5 K/uL (4.3-10.9) D 01/25/19 04:24 Hgb 12.5 g/dL (13.6-17.9) L 01/25/19 04:24 Hct 37.7 % (39.6-49.0) L 01/25/19 04:24 Plt Count 354 K/uL (152-406) 01/25/19 04:24 PT Cancelled 01/18/19 Unknown INR Cancelled 01/18/19 Unknown Sodium 137 mmol/L (136-145) 01/25/19 04:24 Potassium 4.5 mmol/L (3.5-5.1) 01/25/19 04:24 BUN 21 mg/dL (7-18) H 01/25/19 04:24 Creatinine 1.01 mg/dL (0.55-1.3) 01/25/19 04:24 Glucose 99 mg/dL (74-106) 01/25/19 04:24 Magnesium 2.3 mg/dL (1.8-2.4) 01/20/19 04:13 LDL Cholesterol Direct 174 mg/dL (100-129) H 01/19/19 07:17 Home Medications: Aspirin 81 mg PO DAILY 01/18/19 Atorvastatin Calcium 40 mg PO BEDTIME 01/18/19 Canagliflozin/Metformin HCl [Invokamet 150-1,000 mg Tablet] 1 tab PO BID Glimepiride [Amaryl] 4 mg PO BID 01/18/19 Lisinopril [Prinivil] 20 mg PO DAILY 01/18/19 Aspirin 325 mg PO DAILY #30 tablet 01/25/19 New Medications: Aspirin 325 mg PO DAILY #30 tablet Followup: Jarett Kilgore MD [ACTIVE - CAN ADMIT] - (call to schedulle appointment) Olayinka Cason MD [ACTIVE - CAN ADMIT] - (call to schedule appointment)
== END 2019-01-25 21:55 | DRG 481 ==
LOC: 4TH 12:08
PROVIDERS: ADMIT Internal Medicine; ATTEND Internal Medicine
PROC: 0QSC04Z Reposition Left Lower Femur with Internal Fixation Device, Open Approach (ICD-10-PCS; principal; 2019-01-19 14:00)
DX: S72.422A Displaced fracture of lateral condyle of left femur, initial encounter for closed fracture (principal); Z68.41 Body mass index [BMI] 40.0-44.9, adult; W01.0XXA Fall on same level from slipping, tripping and stumbling without subsequent striking against object, initial encounter; Y92.010 Kitchen of single-family (private) house as the place of occurrence of the external cause; E11.65 Type 2 diabetes mellitus with hyperglycemia; I10 Essential (primary) hypertension; E66.01 Morbid (severe) obesity due to excess calories; Z79.82 Long term (current) use of aspirin; Z95.5 Presence of coronary angioplasty implant and graft; Z96.652 Presence of left artificial knee joint
CPT/HCPCS: 36415; 71045; 80048; 81003; 82043; 82570; 82947; 82962; 83036; 83735; 85025; 85610; 93005; 96372; 97110; 97116; 97163; 97530; 97542; 99284; J0690; J1170; J1650; J2250; J2370; J2405; J2704; J2795; J3010; J7030